=== PATIENT | male | born 1940 | race Caucasian/White ===

== ENCOUNTER 2019-03-31 14:55 | Emergency (ER) | payer MEDICARE, OTHER ==
[~2019-03-31] VITALS: Ht 177.8 cm; Wt 79.5 kg
[~2019-03-31 14:55] MED LIST: ALEVE220 MG PO
[2019-03-31 15:06] VITALS: Ht 177.8 cm; Wt 79.5 kg
[2019-03-31 17:05] LABS: BASOPHILS 0.1 % (0-2); EOSINOPHILS 0.2 % (0-7); HEMATOCRIT 37.1 % (42.0-54.0); HEMOGLOBIN 12.7 g/dL (13.5-17.5); IMMATURE GRANULOCYTES 0.3 % (0-5); LYMPHOCYTES 14.8 % (15-50); MCH 31.7 pg (26.0-34.0); MCHC 34.2 g/dL (31.0-37.0); MCV 92.5 fL (80.0-100.0); MEAN PLATELET VOLUME 9.4 fL (7.4-10.4); MONOCYTES 10.9 % (2-11); NEUTROPHILS 73.7 % (40-80); PLATELET COUNT 242 10x3/uL (130-400); RBC 4.01 10x6/uL (4.20-6.10); RDW 11.8 % (11.5-14.5); WBC 9.4 10x3/uL (4.8-10.8)
[2019-03-31 17:31] LABS: INR 1.01 (0.85-1.17); PROTIME 12.8 SECONDS (11.6-15.0)
[2019-03-31 17:33] LABS: CALC OSMOLALITY 267 mosm/kg (275-300); CARBON DIOXIDE 26.4 mmol/L (21.0-32.0); CHLORIDE - SERUM 98 mmol/L (98-107); CREATININE - SERUM 0.8 mg/dL (0.6-1.3); GLUCOSE 114 mg/dL (74-106); POTASSIUM - SERUM 3.8 mmol/L (3.5-5.1); SODIUM 133 mmol/L (136-145); UREA NITROGEN 16 mg/dL (7-18); eGFR NON AFRICAN AMERICAN > 90 mL/min (90-120)
[2019-03-31 17:39] LABS: ALBUMIN 3.4 g/dL (3.4-5.0); ALKALINE PHOSPHATASE 106 U/L (46-116); ALT (SGPT) 40 U/L (10-68); BILIRUBIN - TOTAL 0.59 mg/dL (0.2-1.3); PROTEIN - SERUM 7.9 g/dL (6.4-8.2)
[2019-03-31] MEDS ORDERED: PREDNISONE50 MG PO (19:25)
[2019-03-31] MEDS ORDERED: VALTREX1000 MG PO (19:25)
[2019-03-31 19:51] VITALS: BP 128/59
== END 2019-03-31 20:01 | disposition home or self-care (01) ==
LOC: D.ER 14:55
PROVIDERS: Family Medicine
DX: M43.6 Torticollis (principal); R05 Cough; M19.91 Primary osteoarthritis, unspecified site